=== PATIENT | female | born 1965 | race Caucasian/White ===

== ENCOUNTER 2021-04-30 19:12 | Inpatient (IN) | payer OTHER ==
[~2021-04-30] VITALS: Ht 154.9 cm; Wt 85.8 kg
[2021-04-30] MEDS ORDERED: TORSEMIDE100 MG PO (21:10)
[2021-04-30] MEDS ORDERED: ALLOPURINOL100 MG PO (21:10)
[2021-04-30] MEDS ORDERED: PROGESTERONE200 MG PO (21:11)
[2021-04-30] MEDS ORDERED: ASPIRIN81 MG PO (21:13)
[2021-04-30] MEDS ORDERED: PIOGLITAZONE HC30 MG PO (21:13)
[2021-05-01 11:12] LABS: HEMOGLOBIN 8.5 gm/dl (12.3-15.3); RED BLOOD COUNT 2.72 M/UL (4.00-5.10); WHITE BLOOD COUNT 6.2 K/UL (4.5-11.0)
--- NOTE | 2021-05-01 11:50 | NUR ---
PATIENT POTASSIUM AT 2.8. MD WATKINS CALLED, NEW ORDER NOTED
[2021-05-02 03:07] LABS: HEMOGLOBIN 8.7 gm/dl (12.3-15.3); RED BLOOD COUNT 2.76 M/UL (4.00-5.10); WHITE BLOOD COUNT 6.7 K/UL (4.5-11.0)
[2021-05-03 07:10] LABS: HEMOGLOBIN 8.7 gm/dl (12.3-15.3); RED BLOOD COUNT 2.78 M/UL (4.00-5.10); WHITE BLOOD COUNT 7.3 K/UL (4.5-11.0)
[2021-05-04 06:45] LABS: HEMOGLOBIN 9.3 gm/dl (12.3-15.3); RED BLOOD COUNT 2.93 M/UL (4.00-5.10); WHITE BLOOD COUNT 7.2 K/UL (4.5-11.0)
--- NOTE | 2021-05-04 20:15 | NUR ---
PT'S IV LEAKING. IV DISCONTINUED. PT STATES THAT SHE'S BEING DISCHARGED TOMORROW AND DOESNT WANT TO BE STUCK AGAIN TO REGAIN IV ACCESS. NOTIFIED MD AND RECEIVED ORDERS. WILL CONTINUE TO MONITOR.
[2021-05-05 04:34] LABS: HEMOGLOBIN 9.5 gm/dl (12.3-15.3); RED BLOOD COUNT 2.99 M/UL (4.00-5.10); WHITE BLOOD COUNT 7.7 K/UL (4.5-11.0)
[2021-05-05] MEDS ORDERED: DEMADEX 20 MG T20 MG PO (15:29)
--- NOTE | 2021-05-05 17:24 | NUR ---
RN NOTIFIED DIALYSIS NURSE DOMINIC OF PATIENT PENDING DISCHARGE. DOMINIC STATED SHE WAS PERFORMING DIALYSIS ON ANOTHER PATIENT AND COULD NOT LEAVE ICU. ODMINIC STATED IT WOULD BE APPROXIMATELY 2 AND A HALF HOURS UNTIL SHE COULD FLUSH PATIENT'S DIALYSIS CATHETER AND CHANGE ITS DRESSING. RN INFORMED PATIENT AND , THEY VERBALIZED UNDERSTANDING.
--- NOTE | 2021-05-05 20:09 | NUR ---
1949- DIALYSIS NURSE CAME INTO PATIENT'S ROOM FLUSHED DIALYSIS SHUNT AND CHANGED THE DRESSING. 1954- PATIENT RECEIVED HER DISCHARGE INSTRUCTIONS, NO QUESTIONS AND NO COMPLAINTS. VITALS WNL. PATIENT WANTED TO AMBULATE DOWN WITH TO CAR.
== END 2021-05-05 20:20 | disposition home or self-care (01) | DRG 291 ==
LOC: PROG CARE 21:03 → MED SURG 4 05-02 15:43
PROVIDERS: Internal Medicine; Internal Medicine Nephrology; ADMIT Internal Medicine
PROC: 5A1D70Z Performance of Urinary Filtration, Intermittent, Less than 6 Hours Per Day (ICD-10-PCS; principal; 2021-05-01)
DX: I13.2 Hypertensive heart and chronic kidney disease with heart failure and with stage 5 chronic kidney disease, or end stage renal disease (principal); N18.6 End stage renal disease; J18.9 Pneumonia, unspecified organism; I50.32 Chronic diastolic (congestive) heart failure; J96.01 Acute respiratory failure with hypoxia; E87.3 Alkalosis; Z20.822 Contact with and (suspected) exposure to COVID-19; I08.1 Rheumatic disorders of both mitral and tricuspid valves; E87.6 Hypokalemia; I27.20 Pulmonary hypertension, unspecified; D63.1 Anemia in chronic kidney disease; E11.22 Type 2 diabetes mellitus with diabetic chronic kidney disease; D69.6 Thrombocytopenia, unspecified; Z99.2 Dependence on renal dialysis; Z79.82 Long term (current) use of aspirin; Z98.51 Tubal ligation status; Z83.3 Family history of diabetes mellitus; Z95.828 Presence of other vascular implants and grafts
CPT/HCPCS: ECHO; 36415; 71045; 80048; 80053; 80069; 81001; 82550; 82553; 82728; 82803; 82962; 83036; 83540; 83550; 83605; 83735; 83880; 84484; 85027; 86140; 87040; 93005; 93306; G0378; G0379; J0456; J1335; J1650; J7030; Q5105